=== PATIENT | female | born 1985 | race Two or more races ===

== ENCOUNTER 2024-01-22 12:22 | Outpatient (CLI) | payer OTHER | END 2024-01-22 12:26 | disposition home or self-care (01) | LOC: PRENATAL 12:22 | PROVIDERS: ATTEND Obstetrics & Gynecology Maternal & Fetal Medicine | DX: Z76.1 Encounter for health supervision and care of foundling (principal) ==

== ENCOUNTER → 2024-02-17 | Outpatient (CLI) | payer OTHER | END | disposition home or self-care (01) | LOC: PRENATAL 13:45 | PROVIDERS: ATTEND Obstetrics & Gynecology Maternal & Fetal Medicine | DX: O35.9XX0 Maternal care for (suspected) fetal abnormality and damage, unspecified, not applicable or unspecified (principal); O35.3XX0 Maternal care for (suspected) damage to fetus from viral disease in mother, not applicable or unspecified; O44.02 Complete placenta previa NOS or without hemorrhage, second trimester; O34.219 Maternal care for unspecified type scar from previous cesarean delivery; O09.522 Supervision of elderly multigravida, second trimester; O34.12 Maternal care for benign tumor of corpus uteri, second trimester; Z3A.20 20 weeks gestation of pregnancy ==

== ENCOUNTER 2024-04-21 13:05 | Outpatient (CLI) | payer OTHER | END 2024-04-21 13:07 | disposition home or self-care (01) | LOC: PRENATAL 13:05 | PROVIDERS: ATTEND Obstetrics & Gynecology Maternal & Fetal Medicine | DX: O26.849 Uterine size-date discrepancy, unspecified trimester (principal); O24.419 Gestational diabetes mellitus in pregnancy, unspecified control; O34.219 Maternal care for unspecified type scar from previous cesarean delivery; O09.529 Supervision of elderly multigravida, unspecified trimester; O34.10 Maternal care for benign tumor of corpus uteri, unspecified trimester; Z3A.29 29 weeks gestation of pregnancy ==

== ENCOUNTER 2024-05-21 13:58 | Outpatient (CLI) | payer OTHER | END 2024-05-21 13:59 | disposition home or self-care (01) | LOC: PRENATAL 13:58 | PROVIDERS: ATTEND Obstetrics & Gynecology Maternal & Fetal Medicine | DX: O26.849 Uterine size-date discrepancy, unspecified trimester (principal); O36.8199 Decreased fetal movements, unspecified trimester, other fetus; O24.419 Gestational diabetes mellitus in pregnancy, unspecified control; O34.219 Maternal care for unspecified type scar from previous cesarean delivery; O09.529 Supervision of elderly multigravida, unspecified trimester; O34.10 Maternal care for benign tumor of corpus uteri, unspecified trimester; Z3A.33 33 weeks gestation of pregnancy ==

== ENCOUNTER 2024-06-09 02:54 | Inpatient (IN) | payer OTHER ==
[~2024-06-09] VITALS: Ht 154.9 cm; Wt 2.7 kg
[2024-06-09 02:39] VITALS: BP 117/80
[2024-06-09] MEDS ORDERED: RINGERS SOLUTION,LACTATED 1,000 ML IV SCH (03:15)
[2024-06-09] MEDS ORDERED: BETAMETHASONE ACETATE,SOD PHOS 30 MG/5 ML ML IM ONE (03:15)
[2024-06-09] MEDS ORDERED: AMPICILLIN SODIUM 2,000 MG VIAL IV ONE (03:15)
[2024-06-09 03:21] LABS: URINE APPEARANCE Turbid; URINE BILIRRUBIN Negative (NEGATIVE); URINE BLOOD Large; URINE COLOR Yellow; URINE GLUCOSE Negative (NEGATIVE); URINE KETONE Negative (NEGATIVE); URINE LEUKOCYTE Trace; URINE NITRATE Negative; URINE UROBILINOGEN 0.2 E.U./dl
[2024-06-09 03:22] LABS: HEMATOCRIT 40.3 % (36.0-45.00); HEMOGLOBIN 13.8 g/dL (12.0-15.00); MEAN CELL VOLUME 89.9 fL (80.00-100.00); MEAN CORPUSCULAR HEMOGLOBIN 30.7 pg (27.00-32.0); MEAN CORPUSCULAR HGB CONC 34.2 g/dl (32.0-36.0); PLATELET COUNT 213 K/uL (150-450); RED BLOOD COUNT 4.48 M/uL (4.00-6.00); RED CELL DISTRIBUTION WIDTH 14.6 % (11.5-14.5)
[2024-06-09 03:25] LABS: URINE BACTERIA 684.2 uL (0.0-1933); URINE CAST 6.56 uL (0.0-1.40); URINE RBC 2585.5 uL (0.0-20.8); URINE WBC 45.1 uL (0.0-23.2)
[2024-06-09] MEDS ORDERED: PRENATAL TABLE1 EAC4 PO (03:43)
[2024-06-09 03:54] LABS: INR < 0.93; PARTIAL THROMBOPLASTIN TIME 28.5 SECONDS (22.0-34.0); PROTHROMBIN TIME 10.1 SECONDS (9.0-11.5)
[2024-06-09] MEDS ORDERED: AMPICILLIN SODIUM 1,000 MG VIAL IV SCH (04:00)
[2024-06-09 04:01] LABS: ALBUMIN 2.7 gm/dL (3.4-5.0); BILIRUBIN TOTAL 0.16 mg/dL (0.3-1.2); CALCIUM 8.9 mg/dL (8.5-10.1); GFR 128.42; GLOBULINA 3.7 G/DL (2.4-3.5); POTASSIUM 4.11 mEq/L (3.5-5.1); TOTAL PROTEIN 6.4 gm/dL (6.4-8.2)
[2024-06-09 04:12] LABS: CREATININE SERUM 0.53 mg/dL (0.55-1.02)
[2024-06-09 04:50] LABS: URINE EPITHELIAL CELLS > 201.7 uL (0.0-38.8); URINE PROTEIN 300 (NEGATIVE)
[2024-06-09 04:51] LABS: URINE MUCUS HEAVY; URINE YEAST NEGATIVE /hpf
[2024-06-09 06:11] VITALS: BP 100/65; O2SAT 98
[2024-06-09] MEDS ORDERED: MORPHINE SULFATE 4 MG/ML CARTRIDGE IV ONE (08:45)
[2024-06-09 11:55] VITALS: BP 114/75; O2SAT 98
[2024-06-09] MEDS ORDERED: OXYTOCIN 10 UNIT/ML (10ML) IV ONE (14:45)
[2024-06-09] MEDS ORDERED: ERYTHROMYCIN BASE OPHT 1GM EACH TUBE OP ONE (14:45)
[2024-06-09] MEDS ORDERED: MORPHINE SULFATE 4 MG/ML VIAL IV ONE ×2 (16:35→17:45)
[2024-06-09] MEDS ORDERED: MEPERIDINE HCL/PF 50 MG/ML VIAL IM PRN (18:15)
[2024-06-09] MEDS ORDERED: PROMETHAZINE HCL 50 MG/ML AMPUL IM PRN (18:15)
[2024-06-09 18:53] VITALS: BP 103/64
[2024-06-10 00:51] VITALS: BP 101/63
[2024-06-10 06:25] LABS: HEMATOCRIT 37.1 % (36.0-45.00); HEMOGLOBIN 12.8 g/dL (12.0-15.00); MEAN CELL VOLUME 89.2 fL (80.00-100.00); MEAN CORPUSCULAR HEMOGLOBIN 30.8 pg (27.00-32.0); MEAN CORPUSCULAR HGB CONC 34.6 g/dl (32.0-36.0); PLATELET COUNT 207 K/uL (150-450); RED BLOOD COUNT 4.16 M/uL (4.00-6.00); RED CELL DISTRIBUTION WIDTH 14.9 % (11.5-14.5)
[2024-06-10 07:55] VITALS: BP 101/63
[2024-06-10] MEDS ORDERED: OxyCODONE HCL/APAP UD (PERCOCET) PO PRN (08:00)
[2024-06-10] MEDS ORDERED: PNV,CALCIUM 72/IRON/FOLIC ACID 1 TAB TABLET PO SCH (09:00)
[2024-06-10] MEDS ORDERED: SIMETHICONE 125 MG CAPSULE PO SCH (09:00)
[2024-06-10] MEDS ORDERED: DOCUSATE SODIUM 100MG CAP PO SCH (09:00)
[2024-06-10 15:40] VITALS: BP 106/69
[2024-06-11 00:35] VITALS: BP 107/64
[2024-06-11 08:59] VITALS: BP 113/72
[2024-06-11 15:57] VITALS: BP 119/78
[2024-06-12] VITALS: BP 105/71
[2024-06-12 08:58] VITALS: BP 105/73
== END 2024-06-12 13:30 | disposition home or self-care (01) | DRG 783 ==
LOC: OB/GYN 02:54 → LDR 02:54 → O/R 14:09 → OB/GYN 14:52
PROVIDERS: ADMIT Obstetrics & Gynecology; ATTEND Obstetrics & Gynecology
PROC: 0UB70ZZ Excision of Bilateral Fallopian Tubes, Open Approach (ICD-10-PCS; 2024-06-09)
PROC: 4A1HXCZ Monitoring of Products of Conception, Cardiac Rate, External Approach (ICD-10-PCS; 2024-06-09)
PROC: 10D00Z1 Extraction of Products of Conception, Low, Open Approach (ICD-10-PCS; principal; 2024-06-09 13:30)
DX: O42.013 Preterm premature rupture of membranes, onset of labor within 24 hours of rupture, third trimester (principal); O60.14X0 Preterm labor third trimester with preterm delivery third trimester, not applicable or unspecified; Z3A.36 36 weeks gestation of pregnancy; Z37.0 Single live birth; Z20.822 Contact with and (suspected) exposure to COVID-19; Z30.2 Encounter for sterilization